=== PATIENT | female | born 1950 | race Caucasian/White ===

== ENCOUNTER → 2017-12-29 | Outpatient (CLI) | payer OTHER | LOC: FIMAGING 08:41 | PROVIDERS: ATTEND Internal Medicine | DX: Z13.820 Encounter for screening for osteoporosis (principal); M85.89 Other specified disorders of bone density and structure, multiple sites; Z78.0 Asymptomatic menopausal state ==

== ENCOUNTER → 2018-06-07 | Outpatient (CLI) | payer OTHER | LOC: FIMAGING 07:54 | PROVIDERS: ATTEND Obstetrics & Gynecology | DX: Z12.31 Encounter for screening mammogram for malignant neoplasm of breast (principal) ==

== ENCOUNTER 2018-11-27 09:49 | Emergency (ER) | payer OTHER ==
--- NOTE | 2018-11-27 10:17 | EDPHY ---
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 She was skiing and [place] 5 days ago 1 fell hard and rolled several times. She states that she did not have any significant pain at the time but over the next several days a large bruise appeared on her left flank. She does not think she broke her ribs and denies having abdominal pain. She complains primarily of pain over her left iliac crest. No hematuria. She states that she was not that concerned and is starting to feel better but her who is a geriatric physician was very concerned. She came here for 2nd opinion. She is able to ambulate without difficulty. Severity: Moderate Modifying factors: Improving REVIEW OF SYSTEMS: Constitutional: denies: chills, fever, recent illness, recent injury EENTM: denies: blurred vision, double vision, nose congestion Respiratory: denies: cough, shortness of breath Cardiac: denies: chest pain, irregular heart rate, lightheadedness, palpitations Gastrointestinal/Abdominal: denies: abdominal pain, diarrhea, nausea, vomiting, blood streaked stools Genitourinary: denies: dysuria, frequency, hematuria, pain Musculoskeletal: See HPI Skin: denies: lesions, rash, jaundice, bruising Neurological: denies: headache, numbness, paresthesia, tingling, dizziness, weakness Hematologic/Lymphatic: denies: blood clots, easy bleeding, easy bruising Immunologic/allergic: denies: HIV/AIDS, transplant 10 systems reviewed and negative except as noted EXAM: GENERAL: Well-appearing, well-nourished and in no acute distress. HEAD: Atraumatic, normocephalic. EYES: Pupils equal round and reactive to light, extraocular movements intact, sclera anicteric, conjunctiva are normal. ENT: TMs normal, nares patent, oropharynx clear without exudates. Moist mucous membranes. NECK: Normal range of motion, supple without lymphadenopathy or JVD. LUNGS: Breath sounds clear to auscultation bilaterally and equal. No wheezes rales or rhonchi. HEART: Regular rate and rhythm without murmurs, rubs or gallops. ABDOMEN: Bruising to left side at iliac crest, mild tenderness. No rib tenderness. No left upper quadrant tenderness. Abdomen Soft, nontender, normoactive bowel sounds. No guarding, no rebound. No masses appreciated. BACK: No CVA tenderness, no spinal tenderness, step-offs or deformities EXTREMITIES: Normal range of motion, no pitting or edema. No clubbing or cyanosis. NEUROLOGICAL: Cranial nerves II through XII grossly intact. Normal speech, normal gait. 5/5 strength, normal movement in all extremities, normal sensation , normal reflexes PSYCH: Normal mood, normal affect. SKIN: Warm, dry, normal turgor, no visible rashes or lesions. Source: Patient Exam Limitations: No limitations - Personal History Current Tetanus Diphtheria and Acellular Pertussis (TDAP): Yes - Medical/Surgical History Hx Asthma: No Hx Chronic Respiratory Disease: No Hx Diabetes: No Hx Cardiac Disease: No Hx Renal Disease: No Hx Cirrhosis: No Hx Alcoholism: No Hx HIV/AIDS: No Hx Splenectomy or Spleen Trauma: No Other PMH: denies - Family History Significant Family History: No pertinent family hx - Social History Smoking Status: Never smoked Alcohol Use: Sober Drug Use: None Constitutional: Initial Vital Signs Temperature (C) 37.2 C 11/27/18 09:54 Heart Rate 80 11/27/18 09:54 Respiratory Rate 17 11/27/18 09:54 Blood Pressure 150/79 H 11/27/18 09:54 O2 Sat (%) 94 11/27/18 09:54 O2 Delivery Mode Room Air Allergies/Adverse Reactions: No Known Allergies Allergy (Unverified 11/27/18 09:54) Home Medications: Medication Instructions Recorded NK [No Known Home Meds] 11/27/18 Medical Decision Making - Diagnostics Imaging Results: Imaging Impressions Abdomen CT 11/27/18 10:14 Impression: 1. Intramuscular hematoma/contusion involving the left lateral abdominal wall musculature. 2. No evidence of internal organ injury. 3. Bilateral nonobstructive nephrolithiasis. Findings discussed with Geoffrey Nicole M.D. at 11:06 hour, 11/27/2018. Imaging: Discussed imaging studies w/ farmworker livestock Radiologist ED Course/Re-evaluation: We discussed the CT results which are reassuring. She declines further workup or testing is eager to go home. Discussed indications for returning. Differential Diagnosis: Partial list of the Differential diagnosis considered include but were not limited to; contusion, pelvic fracture, splenic injury and although unlikely based on the history and physical exam, I also considered rib fracture, pneumothorax, kidney injury. Departure - Departure Disposition: Home, Routine, Self-Care Clinical Impression: Contusion Qualifiers: Encounter type: initial encounter Contusion area: hip Laterality: left Qualified Code(s): S70.02XA - Contusion of left hip, initial encounter Condition: Fair Instructions: Contusion in Adults (ED) Referrals: Messi Sarabia MD [Primary Care Provider] - As per Instructions
[2018-11-27] MEDS ORDERED: IOPAMIDOL (ISOVUE-300) 100 ML BTL ONE (10:21)
[2018-11-27 11:14] VITALS: BP 111/72
== END 2018-11-27 11:16 | disposition home or self-care (01) ==
DX: S30.1XXA Contusion of abdominal wall, initial encounter (principal); V00.321A Fall from snow-skis, initial encounter; Y93.23 Activity, snow (alpine) (downhill) skiing, snowboarding, sledding, tobogganing and snow tubing; Y92.838 Other recreation area as the place of occurrence of the external cause
CPT/HCPCS: 74177; 99285; Q9967

== ENCOUNTER → 2019-02-01 | Outpatient (CLI) | payer OTHER | LOC: FIMAGING 13:29 ==